=== PATIENT | male | born 1945 ===

== ENCOUNTER 2016-08-27 07:46 | Day surgery (SDC) | payer MEDICARE, OTHER ==
--- NOTE | 2016-08-27 07:27 | CP.SDSHP ---
Same Day Surgery H & P - History Proposed Procedure: h/o colon polyps - Previous Medical/Surgical History Cardiac: Hypertension, ASHD/CAD, Other (hyperlipidemia) Endocrine/Metabolic: Diabetes, Obesity Misc: Other (Chronic HCV-with SVR, BPH) - Physical Exam Mental Status: Alert & Oriented x3 Neuro: WNL Heart: WNL Lungs: WNL GI: WNL - Impression Impression: h/o colon polyps Pt. Evaluated Today:Candidate for Anesthesia & Procedure: Yes - Date & Time Date: 08/27/16 Time: 07:26 Short Stay Discharge - Short Stay Discharge Admitting Diagnosis/Reason for Visit: CHRONIC VIRAL HEPAT, CHRONIC ISCHEMIA, H/ O COLON P Disposition: HOME/ ROUTINE
[2016-08-27 08:09] VITALS: BMI 27.7
[2016-08-27 08:27] VITALS: O2SAT 100
[2016-08-27] MEDS ORDERED: Lactated Ringer's 500 ML IV SCH (09:00)
[2016-08-27] MEDS ORDERED: Propofol 10 mg/ml Inj (20 ML) ONE (09:12)
[2016-08-27] MEDS ORDERED: Lidocaine Hydrochloride 5 ML INJ ONE (09:12)
[2016-08-27 10:01] VITALS: TEMP 97
[2016-08-27 10:53] VITALS: BP 123/72; PULSE 68; RESP 16
== END 2016-08-27 11:10 | disposition home or self-care (01) ==
LOC: C.ENDO 07:46
PROVIDERS: ATTEND Internal Medicine Gastroenterology
DX: K62.1 Rectal polyp (principal); K64.8 Other hemorrhoids; K57.30 Diverticulosis of large intestine without perforation or abscess without bleeding; B18.2 Chronic viral hepatitis C
CPT/HCPCS: 45388; 82948; 88305; J2704; J7120